=== PATIENT | female | born 1970 | race Caucasian/White ===

== ENCOUNTER 2020-07-14 12:14 | Outpatient (REF) | payer MEDICARE, MEDICAID, SELFPAY | END 2020-07-14 12:15 | disposition home or self-care (01) | LOC: HO.HMGCLDS 12:14 | PROVIDERS: PCP Internal Medicine; Visit Provider Internal Medicine | DX: Z13.89 Encounter for screening for other disorder (principal) ==

== ENCOUNTER 2020-11-01 15:04 | Outpatient (REF) | payer MEDICARE, MEDICAID, SELFPAY ==
[2020-11-01 16:31] LABS: MANUAL DIFF FLAG NO
[2020-11-01 16:38] LABS: Basophils Absolute Auto 0.1 X10*3/uL (0.0-0.2); Eosinophils Absolute Auto 0.2 X10*3/uL (0.0-0.4); Eosinophils Percent Auto 2.3 % (0-4); Hematocrit 45.4 % (37-47); Hemoglobin 14.7 g/dl (12.0-16.0); Imm Gran Abs Auto 0.05 X10*3/uL (0.00-0.03); Imm Gran Pct Auto 0.5 % (0.0-0.4); Lymphocytes Absolute Auto 2.2 X10*3/uL (1.2-4.9); Lymphocytes Percent Auto 22.7 % (20-40); Mean Corpuscular HGB Conc 32.4 g/dl (31.0-35.0); Mean Corpuscular Hemoglobin 29.7 pg (27.0-33.0); Mean Corpuscular Volume 91.7 fL (80-98); Monocytes Absolute Auto 0.6 X10*3/uL (0.1-1.2); Monocytes Percent Auto 6.5 % (2-11); Neutrophils Absolute Auto 6.5 X10*3/uL (2.0-8.3); Platelet Count 404 X10*3/uL (160-400); Red Blood Count 4.95 X10*6/uL (4.20-5.50); Red Cell Distribution Width 12.9 % (11.0-16.0); White Blood Count 9.7 X10*3/uL (4.8-10.8)
[2020-11-01 17:01] LABS: Alanine Aminotransferase 17 U/L (0-31); Albumin Level 4.5 g/dL (3.5-5.0); Alkaline Phosphatase 83 U/L (39-117); Anion Gap 14 (12-20); Aspartate Amino Transferase 11 U/L (5-31); Bilirubin Direct 0.2 mg/dL (0.0-0.5); Bilirubin Total 0.5 mg/dL (0.0-1.0); Blood Urea Nitrogen 13 mg/dL (9-16); Calcium 9.4 mg/dL (8.4-10.2); Carbon Dioxide 28 mmol/L (22-29); Chloride 101 mmol/L (96-108); Estimated Glomerular Filt Rate > 60; Glucose Random 95 mg/dL (60-115); Potassium 4.7 mmol/L (3.3-5.1); Sodium 138 mmol/L (135-145); Total Protein 7.5 g/dL (6.5-8.0)
[2020-11-01 17:22] LABS: TSH reflex Free T4 0.91 uIU/mL (0.32-4.0)
[2020-11-02 05:51] LABS: LDL Cholesterol Direct 122 mg/dL (<100)
[2020-11-05 14:31] LABS: Vitamin D 25-OH, D2 <4 ng/mL; Vitamin D 25-OH, D3 30 ng/mL; Vitamin D 25-OH, Total 30 ng/mL (30-100)
== END 2020-11-01 15:05 | disposition home or self-care (01) ==
LOC: HO.HMGCLDS 15:04
PROVIDERS: PCP Internal Medicine; Visit Provider Internal Medicine
DX: I10 Essential (primary) hypertension (principal); E03.9 Hypothyroidism, unspecified; J45.30 Mild persistent asthma, uncomplicated; Z91.09 Other allergy status, other than to drugs and biological substances
CPT/HCPCS: 36415; 80048; 80076; 82306; 83721; 84443; 85025

== ENCOUNTER 2021-08-25 12:51 | Outpatient (REF) | payer MEDICARE, MEDICAID, SELFPAY ==
[2021-08-25 13:48] LABS: MANUAL DIFF FLAG NO
[2021-08-25 13:51] LABS: Basophils Absolute Auto 0.1 X10*3/uL (0.0-0.2); Basophils Percent Auto 0.9 % (0-2); Eosinophils Absolute Auto 0.2 X10*3/uL (0.0-0.4); Eosinophils Percent Auto 1.7 % (0-4); Hematocrit 47.4 % (37.0-47.0); Hemoglobin 15.7 g/dl (12.0-16.0); Imm Gran Abs Auto 0.04 X10*3/uL (0.00-0.03); Imm Gran Pct Auto 0.4 % (0.0-0.4); Lymphocytes Absolute Auto 2.6 X10*3/uL (1.2-4.9); Mean Corpuscular HGB Conc 33.1 g/dl (31.0-35.0); Mean Corpuscular Hemoglobin 30.1 pg (27.0-33.0); Mean Platelet Volume 8.5 fL (9.4-12.3); Monocytes Absolute Auto 0.6 X10*3/uL (0.1-1.2); Monocytes Percent Auto 5.9 % (2-11); Neutrophils Absolute Auto 7.3 x10*3/uL (2.0-8.3); Neutrophils Percent Auto 67.1 % (45-73); Platelet Count 411 X10*3/uL (160-400); Red Blood Count 5.21 X10*6/uL (4.20-5.50); Red Cell Distribution Width 12.9 % (11.0-16.0); White Blood Count 10.8 X10*3/uL (4.8-10.8)
[2021-08-25 14:04] LABS: Estimated Average Glucose 117 mg/dL; Hemoglobin A1C 152.1826 umol/L; Hemoglobin A1c % 5.7 %
[2021-08-25 14:15] LABS: Alanine Aminotransferase 10 U/L (0-31); Albumin Level 4.7 g/dL (3.5-5.0); Alkaline Phosphatase 86 U/L (39-117); Anion Gap 12 (12-20); Aspartate Amino Transferase 14 U/L (5-31); Bilirubin Total 0.4 mg/dL (0.0-1.0); Blood Urea Nitrogen 14 mg/dL (9-16); Carbon Dioxide 29 mmol/L (22-29); Chloride 101 mmol/L (96-108); Estimated Glomerular Filt Rate > 60; Glucose Random 117 mg/dL (60-115); Potassium 4.6 mmol/L (3.3-5.1); Sodium 137 mmol/L (135-145)
[2021-08-25 14:35] LABS: TSH reflex Free T4 0.76 uIU/mL (0.32-4.0)
[2021-08-26 05:11] LABS: LDL Cholesterol Direct 140 mg/dL (<100)
[2021-08-29 07:07] LABS: Vitamin D 25-OH, D2 <4 ng/mL; Vitamin D 25-OH, D3 28 ng/mL; Vitamin D 25-OH, Total 28 ng/mL (30-100)
== END 2021-08-25 12:52 | disposition home or self-care (01) ==
LOC: HO.HMGCLDS 12:51
PROVIDERS: PCP Internal Medicine; Visit Provider Internal Medicine
DX: I10 Essential (primary) hypertension (principal); E03.9 Hypothyroidism, unspecified; E66.9 Obesity, unspecified; K62.5 Hemorrhage of anus and rectum; K64.4 Residual hemorrhoidal skin tags; K59.01 Slow transit constipation; Z91.09 Other allergy status, other than to drugs and biological substances
CPT/HCPCS: 36415; 80053; 82306; 83036; 83721; 84443; 85025

== ENCOUNTER 2022-07-03 11:55 | Outpatient (REF) | payer MEDICARE, MEDICAID, SELFPAY ==
[2022-07-03 16:09] LABS: Alanine Aminotransferase 12 U/L (0-31); Albumin Level 4.6 g/dL (3.5-5.0); Alkaline Phosphatase 85 U/L (39-117); Anion Gap 14 (12-20); Aspartate Amino Transferase 14 U/L (5-31); Bilirubin Total 0.6 mg/dL (0.0-1.0); Blood Urea Nitrogen 10 mg/dL (9-16); Calcium 9.7 mg/dL (8.4-10.2); Carbon Dioxide 24 mmol/L (22-29); Chloride 103 mmol/L (96-108); Estimated Glomerular Filt Rate > 60; Glucose Fasting 105 mg/dL (60-99); Glucose Random 105 mg/dL (60-115); Potassium 4.5 mmol/L (3.3-5.1); Sodium 136 mmol/L (135-145); Total Protein 7.6 g/dL (6.5-8.0)
[2022-07-04 08:57] LABS: LDL Cholesterol Direct 146 mg/dL (<100)
[2022-07-07 14:47] LABS: Vitamin D 25-OH, D2 <4 ng/mL; Vitamin D 25-OH, D3 16 ng/mL; Vitamin D 25-OH, Total 16 ng/mL (30-100)
== END 2022-07-03 11:56 | disposition home or self-care (01) ==
LOC: HO.HMGCLDS 11:55
PROVIDERS: PCP Internal Medicine; Visit Provider Internal Medicine
DX: J44.9 Chronic obstructive pulmonary disease, unspecified (principal); E55.9 Vitamin D deficiency, unspecified; E03.9 Hypothyroidism, unspecified; I10 Essential (primary) hypertension; E66.9 Obesity, unspecified; K59.01 Slow transit constipation; K64.4 Residual hemorrhoidal skin tags; Z91.09 Other allergy status, other than to drugs and biological substances
CPT/HCPCS: 36415; 80053; 82306; 83721; 84443

== ENCOUNTER 2022-12-26 15:29 | Outpatient (REF) | payer MEDICARE, MEDICAID, SELFPAY ==
--- NOTE | ~2022-12-26 | MM_ITS ---
EXAMINATION: MM SCREENING DIGITAL BREAST TOMOSYNTHESIS, BILATERAL CLINICAL INFORMATION: Screening. Asymptomatic. The lifetime risk of breast cancer based on the Tyrer-Cuzick Model is 16%. COMPARISON: Mammography: This study is compared with prior exams dating back to 2018. TECHNIQUE: Digital breast tomosynthesis is performed in both the craniocaudal and mediolateral oblique views along with computer-aided detection (CAD). Synthesized 2D images are generated from the tomosynthesis. FINDINGS: There are scattered areas of fibroglandular density (ACR BI-RADS breast composition Category b). There are no significant masses, abnormal calcifications, or other abnormalities. MM/MM tomosynthesis screening BI IMPRESSION: No mammographic evidence of malignancy. ASSESSMENT: BI-RADS BI-RADS 1 - Negative RECOMMENDATION: Routine annual mammography screening. 1 year F/U This examination should not preclude the clinical evaluation of a suspicious palpable abnormality. This patient's information was entered into a reminder system with a target due date for their next mammogram.
== END 2022-12-26 15:30 | disposition home or self-care (01) ==
LOC: HO.MAMMO 15:29
PROVIDERS: PCP Internal Medicine; Visit Provider Internal Medicine
DX: Z12.31 Encounter for screening mammogram for malignant neoplasm of breast (principal)
CPT/HCPCS: 77063; 77067

== ENCOUNTER → 2022-12-26 15:30 | Outpatient (BNV) | payer MEDICARE, MEDICAID, SELFPAY | PROVIDERS: PCP Internal Medicine; Visit Provider Radiology Diagnostic Radiology | DX: Z12.31 Encounter for screening mammogram for malignant neoplasm of breast (principal) | CPT/HCPCS: 77063; 77067 ==

== ENCOUNTER 2023-01-29 15:08 | Outpatient (AMB) | payer MEDICARE, MEDICAID, SELFPAY ==
[2023-01-29 15:12] VITALS: BP 142/86; PULSE 86; O2SAT 96; BMI 37.5
--- NOTE | 2023-01-29 15:12 | MHC.PC.OV ---
Vital Signs 01/29/23 15:12 Height 5 ft 1 in Weight 198 lb 6 oz BMI 37.5 BP 142/86 H Blood Pressure Location Rt brachial Position Sitting Pulse 86 Pulse Source Pulse Oximeter Pulse Oximetry (%) 96 Oxygen Delivery Method Room Air Intake Visit Reasons: BP Follow up Allergies No Known Allergies [No Known Allergies*] Allergy (Verified 01/29/23 15:13) Medication List - Last Reconciled 01/29/23 by Sukhwinder Cade MD albuterol sulfate 90 mcg/actuation 2 puffs PO QID PRN amlodipine 2.5 mg PO DAILY clotrimazole 1% (Antifungal (clotrimazole)) 1 appl topical BID 30 days fluticasone propionate 50 mcg/actuation (Flonase Allergy Relief) 1 spray intranasal DAILY 30 days levothyroxine 150 mcg PO DAILY 90 days miscellaneous medical supply (Blood Pressure Cuff) blood pressure device polyethylene glycol 3350 (Miralax) 17 grams PO DAILY 90 days Tobacco use date assessed: 01/29/23 Dental Screening Dental Screen Date: 01/29/23 Did you have a dental visit in the last 12 months?: No Did you have a dental problem in the last 6 months where you did not have access to dental care?: No Was dental information given to patient?: No HPI BP Follow up HPI Details Patient is 52-year-old female came in for follow-up appointment Due for labs Patient is prediabetic, I will be booking her appointment with the dietitian She continued to smoke we talked about again today if she needed any help I can provide that. For now she needs to cut down number of cigarettes she is smoking She is on levothyroxine 150 mcg for hypothyroidism. Flonase for allergic rhinitis. Hypertension: Taking amlodipine 2.5 mg blood pressure is elevated I am increasing the dose to 5 mg? ProAir as needed for asthma which is more like seasonal , and Zyrtec for allergies BMI is elevated patient need to lose weight Patient has appointment in June [facility] Medical History Asthma COPD (chronic obstructive pulmonary disease) Daytime somnolence Hypertension, essential Hypothyroidism Obesity (BMI 35.0-39.9 without comorbidity) Family History Other Mental health disorder Substance use disorder Social History Housing: Apartment Patient Tobacco Use Status: Current everyday Tobacco user Cigarette Packs Per Day: 1 e-Cigarette/Vaping Use: Never Used service: No Current occupational status: unemployed Cognitive needs: No Hearing needs: No Vision needs: Yes Questionnaire PHQ-9 Over the last 2 weeks, how often have you been bothered by any of the following problems? 1. Little interest or pleasure in doing things: several days 2. Feeling down, depressed, or hopeless: more than half the days 3. Trouble falling or staying asleep, or sleeping too much: more than half the days 4. Feeling tired or having little energy: more than half the days 5. Poor appetite or overeating: more than half the days 6. Feeling bad about yourself - or that you are a failure or have let yourself or your family down: several days 7. Trouble concentrating on things, such as reading the newspaper or watching television: not at all 8. Moving or speaking so slowly that other people could have noticed. Or the opposite - being so fidgety or restless that you have been moving around a lot more than usual: several days 9. Thoughts that you would be better off or of hurting yourself in some way: not at all Total score: 11 Depression Screening Interpretation: Negative 38292 - PHQ-9 Billing: Yes Source: Developed by Drs. Ricardo Mojica, Nisha Vora, Smooth David and colleagues, with an educational carmencita from [email or web address]. Thrive Questionnaire Date Thrive assessed: 01/29/23 I am a: Patient What is your living situation today?: I have a steady place to live Within the past 12 months, did the food you bought not last and you didn't have the money to get more?: Never true Within the past 12 months, did you worry whether your food would run out before you got money to buy more?: Never true Do you have trouble paying for medicines?: No Do you have trouble getting transportation to medical appointments?: Yes Do you have trouble paying your heating and electricity bill?: No Do you have trouble taking care of your child, family member or friend?: No Do you have trouble with day-to-day activities such as bathing, preparing meals, shopping, managing finances, etc.?: Yes Are you currently unemployed and looking for a job?: No Are you interested in more education?: No AUDIT C Alcohol Use Questionnaire (AUDIT-C) 1. How often do you have a drink containing alcohol?: Never 3. How often do you have six or more drinks on one occasion?: Never Total Score: 0 Score Reviewed/Action Taken: Yes ESSIE-7 AMB Questionnaire ESSIE-7 Date ESSIE - 7 assessed: 01/29/23 Feeling nervous, anxious, or on edge: 1 = Several days Not being able to stop or control worryin = Several days Worrying too much about different things: 1 = Several days Trouble relaxin = Several days Being so restless that it is hard to sit still: 1 = Several days Becoming easily annoyed or irritable: 1 = Several days Feeling afraid as if something awful might happen: 0 = Not at all Total ESSIE-7 score (0-4 normal; 5-9 mild; 10-14 moderate; 15-21 severe): 6 Source: Developed by Drs. Ricardo Mojica, Nisha Vora, Smooth David and colleagues, with an educational carmencita from [email or web address]. ESSIE-7 Assessment Billing ESSIE-7 Assessment Tool: ESSIE-7 Assessment 07905 Review of Systems Const Denies chills and Denies fever(s) ENT Denies epistaxis and Denies nasal discharge Card Denies chest pain Resp Denies chest congestion, Denies cough and Denies hemoptysis GI Denies diarrhea and Denies nausea Skin/Breast Denies rash Neuro Reports no additional complaints Psych Reports no additional complaints Endo Reports no additional complaints Physical exam (Primary Care) Vital Signs: Last Vital Signs Pulse 86 01/29/23 15:12 BP 142/86 H 01/29/23 15:12 Pulse Ox 96 01/29/23 15:12 Oxygen Delivery Method Room Air 01/29/23 15:12 BMI result Body Mass Index 37.5 Tobacco/Smoking Status: Tobacco use Status Tobacco use date assessed 01/29/23 01/29/23 15:16 Patient Tobacco Use Status Current everyday Tobacco 01/29/23 15:16 e-Cigarette/Vaping Use Never Used 01/29/23 15:16 PHQ-9: PHQ-9 Score PHQ-9: Total score 11 01/29/23 15:48 Depression Screening Interpretation: Negative Thrive Assessment: Date of Thrive Assessment Date Thrive assessed 01/29/23 01/29/23 15:48 Const General: cooperative, comfortable and no acute distress Orientation/consciousness: patient oriented x3 HENMT Head: Yes normocephalic Eyes General: appearance normal, both eyes and all related structures Neck Neck: Yes supple Resp Effort & Inspection: normal respiratory effort, no cough and no stridor Cardio Rhythm: regular rhythm Heart sounds: S1 normal heart sound present and S2 normal heart sound present Skin General skin exam: turgor normal Neuro General: patient oriented x3, tone normal and moves all extremities Extrem Right lower extremity: no edema Left lower extremity: no edema Assessment and Plan Assessment & Plan (1) Hypertension, essential: Code(s): I10 - Essential (primary) hypertension (2) Hypothyroidism: Code(s): E03.9 - Hypothyroidism, unspecified Qualifiers: Hypothyroidism type: unspecified Qualified Code(s): E03.9 - Hypothyroidism, unspecified (3) COPD (chronic obstructive pulmonary disease): Code(s): J44.9 - Chronic obstructive pulmonary disease, unspecified Qualifiers: COPD type: unspecified COPD Qualified Code(s): J44.9 - Chronic obstructive pulmonary disease, unspecified (4) Obesity (BMI 35.0-39.9 without comorbidity): Code(s): E66.9 - Obesity, unspecified (5) Pre-diabetes: Code(s): R73.03 - Prediabetes (6) Smoker: Code(s): F17.200 - Nicotine dependence, unspecified, uncomplicated Plan Patient is 52-year-old female came in for follow-up appointment Due for labs Patient is prediabetic, I will be booking her appointment with the dietitian She continued to smoke we talked about again today if she needed any help I can provide that. For now she needs to cut down number of cigarettes she is smoking She is on levothyroxine 150 mcg for hypothyroidism. Flonase for allergic rhinitis. Hypertension: Taking amlodipine 2.5 mg blood pressure is elevated I am increasing the dose to 5 mg? ProAir as needed for asthma which is more like seasonal , and Zyrtec for allergies BMI is elevated patient need to lose weight Patient has appointment in [place] Orders: Orders Hemoglobin A1c Today E03.9 - Hypothyroidism, unspecified, E66.9 - Obesity, unspecified, I10 - Essential (primary) hypertension, J44.9 - Chronic obstructive pulmonary disease, unspecified TSH reflex Free T4 Today E03.9 - Hypothyroidism, unspecified, E66.9 - Obesity, unspecified, I10 - Essential (primary) hypertension, J44.9 - Chronic obstructive pulmonary disease, unspecified Complete Blood Count Auto Diff Today E03.9 - Hypothyroidism, unspecified, E66.9 - Obesity, unspecified, I10 - Essential (primary) hypertension, J44.9 - Chronic obstructive pulmonary disease, unspecified Comprehensive Savage. Panel Fast Today E03.9 - Hypothyroidism, unspecified, E66.9 - Obesity, unspecified, F17.200 - Nicotine dependence, unspecified, uncomplicated, I10 - Essential (primary) hypertension, J44.9 - Chronic obstructive pulmonary disease, unspecified, R73.03 - Prediabetes Lipid Panel Today E03.9 - Hypothyroidism, unspecified, E66.9 - Obesity, unspecified, F17.200 - Nicotine dependence, unspecified, uncomplicated, I10 - Essential (primary) hypertension, J44.9 - Chronic obstructive pulmonary disease, unspecified, R73.03 - Prediabetes Medications: Changed From amlodipine 2.5 mg PO DAILY 30 tabs 0RF To amlodipine 5 mg PO DAILY 90 tabs 1RF Coding Level of Care Code Est Pt Level 4 (93830) Diagnoses Hypertension, essential I10 Hypothyroidism E03.9 Hypothyroidism type: unspecified COPD (chronic obstructive pulmonary disease) J44.9 COPD type: unspecified COPD Obesity (BMI 35.0-39.9 without comorbidity) E66.9 Pre-diabetes R73.03 Smoker F17.200 Additional Codes ESSIE-7 Assessment Billing - ESSIE-7 Assessment Tool: ESSIE-7 Assessment [id number] ([id number])
== END 2023-01-29 15:33 | disposition home or self-care (01) ==
PROVIDERS: PCP Internal Medicine; Visit Provider Internal Medicine
DX: I10 Essential (primary) hypertension (principal); E03.9 Hypothyroidism, unspecified; J44.9 Chronic obstructive pulmonary disease, unspecified; F17.210 Nicotine dependence, cigarettes, uncomplicated; E66.9 Obesity, unspecified; R73.03 Prediabetes
CPT/HCPCS: 99214

== ENCOUNTER 2023-07-09 10:53 | Outpatient (AMB) | payer MEDICARE, MEDICAID, SELFPAY ==
--- NOTE | 2023-07-09 10:53 | A.OFFPC_ITS ---
Vital Signs 07/09/23 10:54 Height 5 ft 1 in Intake Visit Reasons: F/u pneumonia~[phone] Allergies No Known Allergies [No Known Allergies*] Allergy (Verified 07/09/23 10:54) Medication List - Last Reconciled 07/09/23 by Sukhwinder Cade MD albuterol sulfate 90 mcg/actuation 2 puffs PO QID PRN amlodipine 5 mg PO DAILY clotrimazole 1% (Antifungal (clotrimazole)) 1 appl topical BID 30 days fluticasone propionate 50 mcg/actuation (Flonase Allergy Relief) 1 spray intranasal DAILY 30 days levothyroxine 150 mcg PO DAILY 90 days miscellaneous medical supply (Blood Pressure Cuff) blood pressure device polyethylene glycol 3350 (Miralax) 17 grams PO DAILY 90 days Tobacco use date assessed: 07/09/23 Dental Screening Dental Screen Date: 07/09/23 Did you have a dental visit in the last 12 months?: Yes Did you have a dental problem in the last 6 months where you did not have access to dental care?: No Was dental information given to patient?: Patient has dentist HPI F/u pneumonia~[phone] HPI Details Patient is a 53-year-old female this is a telemedicine follow-up appointment post hospital discharge dated 06/22/2023 [facility], when patient presented with a chief complaint of cough with left-sided chest wall pain of 2 weeks' duration. Patient's oxygen saturation was 93% on room air at arrival On examination she was found to have isolated inspiratory crackles left base without any respiratory distress X-ray done was consistent with pneumonia, she also had leukocytosis Patient was treated with doxycycline and prednisone And was discharged home Patient has finished her antibiotic course she is feeling better, chest pain has resolved she is able to take deep breaths now However continued to have congested cough but phlegm is clear Patient also complaining of lack of energy and get tired easily She was supposed to have labs for me in January but she did not I have placed another order for labs to be done end of this month fasting so we can check her sugar Patient have impaired fasting sugar We will also repeat chest x-ray end of this month Her blood pressure has been running high she tells be, in hospital it was 138 systolic I am increasing amlodipine to 10 mg currently patient is on 5 mg Hypothyroidism: Continue levothyroxine 150 mcg PFSH Medical History Daytime somnolence Obesity (BMI 35.0-39.9 without comorbidity) Asthma COPD (chronic obstructive pulmonary disease) Hypothyroidism Hypertension, essential Family History Other Mental health disorder Substance use disorder Social History Housing: Apartment Patient Tobacco Use Status: Current everyday Tobacco user Cigarette Packs Per Day: 1 e-Cigarette/Vaping Use: Never Used service: No Current occupational status: unemployed Cognitive needs: No Hearing needs: No Vision needs: Yes Questionnaire Thrive Questionnaire Date Thrive assessed: 01/29/23 AUDIT C Alcohol Use Questionnaire (AUDIT-C) 1. How often do you have a drink containing alcohol?: Never 3. How often do you have six or more drinks on one occasion?: Never Total Score: 0 Score Reviewed/Action Taken: Yes ESSIE-7 AMB Questionnaire ESSIE-7 Date ESSIE - 7 assessed: 01/29/23 Source: Developed by Drs. Ricardo Mojica, Nisha Vora, Smooth David and colleagues, with an educational carmencita from [employer]. Review of Systems Const Denies chills and Denies fever(s) ENT Denies epistaxis and Denies nasal discharge Card Denies chest pain Resp Denies hemoptysis GI Denies diarrhea and Denies nausea Skin/Breast Denies rash Neuro Reports no additional complaints Psych Reports no additional complaints Endo Reports no additional complaints Physical exam (Primary Care) Tobacco/Smoking Status: Tobacco use Status Tobacco use date assessed 07/09/23 07/09/23 10:55 Patient Tobacco Use Status Current everyday Tobacco 07/09/23 10:55 e-Cigarette/Vaping Use Never Used 07/09/23 10:55 Thrive Assessment: Date of Thrive Assessment Date Thrive assessed 01/29/23 07/09/23 10:55 Telehealth Telehealth Location of provider rendering services: practice address Location of patient: address on file Patient Identification confirmed using: Name, : Yes Telehealth method: voice only Patient verbally consented to treatment: Yes Patient verbally consented to billing insurance company: Yes Patient informed of any privacy concerns related to visit: Yes Assessment and Plan Assessment & Plan (1) Acute pneumonia: Code(s): J18.9 - Pneumonia, unspecified organism (2) Pre-diabetes: Code(s): R73.03 - Prediabetes (3) Environmental allergies: Code(s): Z91.09 - Other allergy status, other than to drugs and biological substances (4) COPD (chronic obstructive pulmonary disease): Code(s): J44.9 - Chronic obstructive pulmonary disease, unspecified Qualifiers: COPD type: unspecified COPD Qualified Code(s): J44.9 - Chronic obstructive pulmonary disease, unspecified (5) Hypothyroidism: Code(s): E03.9 - Hypothyroidism, unspecified Qualifiers: Hypothyroidism type: unspecified Qualified Code(s): E03.9 - Hypothyroidism, unspecified (6) Hypertension, essential: Code(s): I10 - Essential (primary) hypertension Plan Patient is a 53-year-old female this is a telemedicine follow-up appointment post hospital discharge dated 06/22/2023 [facility], when patient presented with a chief complaint of cough with left-sided chest wall pain of 2 weeks' duration. Patient has COPD Patient's oxygen saturation was 93% on room air at arrival On examination she was found to have isolated inspiratory crackles left base without any respiratory distress X-ray done was consistent with pneumonia, she also had leukocytosis Patient was treated with doxycycline and prednisone And was discharged home Patient has finished her antibiotic course she is feeling better, chest pain has resolved she is able to take deep breaths now However continued to have congested cough but phlegm is clear Patient also complaining of lack of energy and get tired easily She was supposed to have labs for me in January but she did not I have placed another order for labs to be done end of this month fasting so we can check her sugar Patient have impaired fasting sugar We will also repeat chest x-ray end of this month Her blood pressure has been running high she tells be, in hospital it was 138 systolic I am increasing amlodipine to 10 mg currently patient is on 5 mg Hypothyroidism: Continue levothyroxine 150 mcg Orders: Orders XR chest 2V Today J18.9 - Pneumonia, unspecified organism Medications: Changed From amlodipine 5 mg PO DAILY 90 tabs 1RF To amlodipine 10 mg PO DAILY 90 tabs 1RF Coding Level of Care Code Tele Est Pt Level 4 (41020) Diagnoses Acute pneumonia J18.9 Pre-diabetes R73.03 Environmental allergies Z91.09 Chronic obstructive pulmonary disease, unspecified COPD type J44.9 COPD type: unspecified COPD Hypothyroidism, unspecified type E03.9 Hypothyroidism type: unspecified Hypertension, essential I10 Time Spent (min) 30 Comment 5 prep, 20 with patient, 5 charting coordination of care
== END 2023-07-09 13:59 | disposition home or self-care (01) ==
LOC: HO.HMGC 10:53
PROVIDERS: PCP Internal Medicine; Visit Provider Internal Medicine
DX: J44.9 Chronic obstructive pulmonary disease, unspecified (principal); J18.9 Pneumonia, unspecified organism; R73.03 Prediabetes; Z91.09 Other allergy status, other than to drugs and biological substances; E03.9 Hypothyroidism, unspecified; I10 Essential (primary) hypertension
CPT/HCPCS: 99443

== ENCOUNTER 2023-07-25 10:06 | Outpatient (REF) | payer MEDICARE, MEDICAID, SELFPAY ==
--- NOTE | ~2023-07-25 | XR_ITS ---
EXAMINATION: XR CHEST CLINICAL INFORMATION: Pneumonia COMPARISON: Chest x-ray on 01/29/2019 TECHNIQUE: 2 views of the chest were obtained. FINDINGS: vascularity. LUNGS: Asymmetric patchy alveolar infiltrates is seen in the right lower lung, probably projected over the right lower lobe posterior basal segment. No pneumothorax is seen. BONES: Bony skeleton is intact. XR/XR chest 2V IMPRESSION: Interval development of Right lower lobe infiltrate suggestive of pneumonia. Follow-up chest x-ray in 4-6 weeks is recommended to ensure complete clearance and exclude underlying pathology.
[2023-07-25 13:12] LABS: MANUAL DIFF FLAG NO
[2023-07-25 13:22] LABS: Basophils Absolute Auto 0.1 X10*3/uL (0.0-0.2); Basophils Percent Auto 0.9 % (0-2); Eosinophils Absolute Auto 0.4 X10*3/uL (0.0-0.4); Eosinophils Percent Auto 3.9 % (0-4); Hematocrit 45.6 % (37.0-47.0); Hemoglobin 15.3 g/dl (12.0-16.0); Imm Gran Abs Auto 0.04 X10*3/uL (0.00-0.03); Imm Gran Pct Auto 0.4 % (0.0-0.4); Lymphocytes Percent Auto 31.1 % (20-40); Mean Corpuscular HGB Conc 33.6 g/dl (31.0-35.0); Mean Corpuscular Hemoglobin 30.6 pg (27.0-33.0); Mean Corpuscular Volume 91.2 fL (80.0-98.0); Mean Platelet Volume 8.8 fL (9.4-12.3); Monocytes Absolute Auto 0.7 X10*3/uL (0.1-1.2); Monocytes Percent Auto 6.8 % (2-11); Neutrophils Absolute Auto 5.4 x10*3/uL (2.0-8.3); Neutrophils Percent Auto 56.9 % (45-73); Platelet Count 403 X10*3/uL (160-400); Red Cell Distribution Width 13.1 % (11.0-16.0); White Blood Count 9.6 X10*3/uL (4.8-10.8)
[2023-07-25 13:40] LABS: Estimated Average Glucose 123 mg/dL; Hemoglobin A1c % 5.9 % (<6.0)
[2023-07-25 13:53] LABS: Alanine Aminotransferase 12 U/L (0-31); Albumin Level 4.1 g/dL (3.5-5.0); Alkaline Phosphatase 83 U/L (39-117); Anion Gap 10 (12-20); Aspartate Amino Transferase 13 U/L (5-31); Bilirubin Total 0.3 mg/dL (0.0-1.0); Blood Urea Nitrogen 7 mg/dL (9-16); Calcium 9.4 mg/dL (8.4-10.2); Carbon Dioxide 28 mmol/L (22-29); Chloride 105 mmol/L (96-108); Cholesterol 192 mg/dL (<200); Estimated Glomerular Filt Rate > 60; Glucose Fasting 117 mg/dL (60-99); HDL Cholesterol 55 mg/dL (>40); LDL Cholesterol Calculated 124 mg/dL (<100); Sodium 139 mmol/L (135-145); Total Protein 7.4 g/dL (6.5-8.0); Triglycerides 67 mg/dL (<150)
[2023-07-25 13:57] LABS: TSH reflex Free T4 2.28 uIU/mL (0.32-4.0)
== END 2023-07-25 10:07 | disposition home or self-care (01) ==
LOC: HO.HMGCX 10:06
PROVIDERS: PCP Internal Medicine; Visit Provider Internal Medicine
DX: J18.9 Pneumonia, unspecified organism (principal); J44.9 Chronic obstructive pulmonary disease, unspecified; I10 Essential (primary) hypertension; E03.9 Hypothyroidism, unspecified; E66.9 Obesity, unspecified; R73.03 Prediabetes; F17.200 Nicotine dependence, unspecified, uncomplicated
CPT/HCPCS: 36415; 71046; 80053; 80061; 83036; 84443; 85025

== ENCOUNTER 2023-07-31 08:33 | Outpatient (AMB) | payer MEDICARE, MEDICAID, SELFPAY ==
--- NOTE | 2023-07-31 11:43 | MHC.PC.OV ---
Vital Signs 07/31/23 11:44 Height 5 ft 1 in Intake Visit Reasons: Discuss XRay~ Allergies No Known Allergies [No Known Allergies*] Allergy (Verified 07/09/23 10:54) Medication List - Last Reconciled 07/31/23 by Sukhwinder Cade MD albuterol sulfate 90 mcg/actuation 2 puffs PO QID PRN amlodipine 10 mg PO DAILY clotrimazole 1% (Antifungal (clotrimazole)) 1 appl topical BID 30 days levothyroxine 150 mcg PO DAILY 90 days miscellaneous medical supply (Blood Pressure Cuff) blood pressure device Tobacco use date assessed: 07/31/23 Dental Screening Dental Screen Date: 07/31/23 Did you have a dental visit in the last 12 months?: No Did you have a dental problem in the last 6 months where you did not have access to dental care?: No Was dental information given to patient?: Patient has dentist HPI Discuss XRay~ HPI Details Patient is a 53-year-old female smoker who had left-sided pneumonia early in June She was evaluated in emergency room and was treated with doxycycline and prednisone We repeated chest x-ray to make sure pneumonia has resolved and chest x-ray this time shows right-sided pneumonia Patient does complain of having irritated cough which is not getting better X-ray report is as following Interval development of Right lower lobe infiltrate suggestive of pneumonia. Discussed with the patient, I have sent azithromycin she is to take that Encouraged patient to stop smoking or at least cut down as much as she can Labs done recently reviewed her fasting sugar is 117 with hemoglobin A1c of 5.9 Her LDL has improved from before at 01:24 Her vitamin-D level is low, I have sent supplement Patient is to repeat chest x-ray again in 6-8 weeks with follow-up appointment [facility] Medical History Daytime somnolence Obesity (BMI 35.0-39.9 without comorbidity) Asthma COPD (chronic obstructive pulmonary disease) Hypothyroidism Hypertension, essential Family History Other Mental health disorder Substance use disorder Social History Housing: Apartment Patient Tobacco Use Status: Current everyday Tobacco user Cigarette Packs Per Day: 1 e-Cigarette/Vaping Use: Never Used service: No Current occupational status: unemployed Cognitive needs: No Hearing needs: No Vision needs: Yes Questionnaire Thrive Questionnaire Date Thrive assessed: 01/29/23 AUDIT C Alcohol Use Questionnaire (AUDIT-C) 1. How often do you have a drink containing alcohol?: Never 3. How often do you have six or more drinks on one occasion?: Never Total Score: 0 Score Reviewed/Action Taken: Yes ESSIE-7 AMB Questionnaire ESSIE-7 Date ESSIE - 7 assessed: 01/29/23 Source: Developed by Drs. Ricardo Mojica, Nisha Vora, Smooth David and colleagues, with an educational carmencita from [employer]. Review of Systems Const Denies chills and Denies fever(s) ENT Denies epistaxis and Denies nasal discharge Card Denies chest pain Resp Denies hemoptysis GI Denies diarrhea and Denies nausea Skin/Breast Denies rash Neuro Reports no additional complaints Psych Reports no additional complaints Endo Reports no additional complaints Physical exam (Primary Care) Tobacco/Smoking Status: Tobacco use Status Tobacco use date assessed 07/31/23 07/31/23 11:44 Patient Tobacco Use Status Current everyday Tobacco 07/31/23 11:44 e-Cigarette/Vaping Use Never Used 07/31/23 11:44 Thrive Assessment: Date of Thrive Assessment Date Thrive assessed 01/29/23 07/31/23 11:44 Telehealth Telehealth Location of provider rendering services: practice address Location of patient: address on file Patient Identification confirmed using: Name, : Yes Telehealth method: voice only Patient verbally consented to treatment: Yes Patient verbally consented to billing insurance company: Yes Patient informed of any privacy concerns related to visit: Yes Assessment and Plan Assessment & Plan (1) Acute pneumonia: Code(s): J18.9 - Pneumonia, unspecified organism (2) Smoker: Code(s): F17.200 - Nicotine dependence, unspecified, uncomplicated (3) Pre-diabetes: Code(s): R73.03 - Prediabetes (4) Vitamin D deficiency: Code(s): E55.9 - Vitamin D deficiency, unspecified Plan Patient is a 53-year-old female smoker who had left-sided pneumonia early in June She was evaluated in emergency room and was treated with doxycycline and prednisone We repeated chest x-ray to make sure pneumonia has resolved and chest x-ray this time shows right-sided pneumonia Patient does complain of having irritated cough which is not getting better X-ray report is as following Interval development of Right lower lobe infiltrate suggestive of pneumonia. Discussed with the patient, I have sent azithromycin she is to take that Encouraged patient to stop smoking or at least cut down as much as she can Labs done recently reviewed her fasting sugar is 117 with hemoglobin A1c of 5.9 Her LDL has improved from before at 01:24 Her vitamin-D level is low, I have sent supplement Patient is to repeat chest x-ray again in 6-8 weeks with follow-up appointment Orders: Orders XR chest 2V 6 Weeks J18.9 - Pneumonia, unspecified organism Medications: New cholecalciferol (vitamin D3) 25 mcg PO DAILY 90 days 90 caps 0RF azithromycin Take 2 tablets today then 1 daily 250 mg PO ONCE 5 days 6 tabs 0RF J06.9 - Acute upper respiratory infection, unspecified Coding Level of Care Code Tele Est Pt Level 3 (50715) Diagnoses Acute pneumonia J18.9 Smoker F17.200 Pre-diabetes R73.03 Vitamin D deficiency E55.9 Time Spent (min) 21
== END 2023-07-31 13:24 | disposition home or self-care (01) ==
LOC: HO.HMGC 08:33
PROVIDERS: PCP Internal Medicine; Visit Provider Internal Medicine
DX: R73.03 Prediabetes (principal); J18.9 Pneumonia, unspecified organism; F17.200 Nicotine dependence, unspecified, uncomplicated; E55.9 Vitamin D deficiency, unspecified
CPT/HCPCS: 99443

== ENCOUNTER 2023-08-22 08:26 | Outpatient (AMB) | payer MEDICARE, MEDICAID, SELFPAY ==
--- NOTE | 2023-08-22 08:48 | MHC.PC.OV ---
Intake Visit Reasons: Ongoing cough [phone] Allergies No Known Allergies [No Known Allergies*] Allergy (Verified 08/22/23 08:49) Medication List - Last Reconciled 08/22/23 by Sukhwinder Cade MD albuterol sulfate 90 mcg/actuation 2 puffs PO QID PRN amlodipine 10 mg PO DAILY cholecalciferol (vitamin D3) 25 mcg PO DAILY 90 days levothyroxine 150 mcg PO DAILY 90 days miscellaneous medical supply (Blood Pressure Cuff) blood pressure device Tobacco use date assessed: 08/22/23 Dental Screening Dental Screen Date: 08/22/23 Did you have a dental visit in the last 12 months?: Yes Did you have a dental problem in the last 6 months where you did not have access to dental care?: No Was dental information given to patient?: Patient has dentist HPI Ongoing cough [phone] HPI Details Patient is 53-year-old female recovering from bronchitis Long history of smoking, still wheezing off and on, phlegm has been cleared now cough has improved I am adding maintenance inhaler Advair disc patient is to start using that 2 times a day Advised patient to have pharmacy demonstrate how to use it and rinse her mouth after using There is no fever chills there is no chest pain no nausea no vomiting Patient is to get back to me in 3 weeks to update me on how she is feeling. [facility] Medical History Daytime somnolence Obesity (BMI 35.0-39.9 without comorbidity) Asthma COPD (chronic obstructive pulmonary disease) Hypothyroidism Hypertension, essential Family History Other Mental health disorder Substance use disorder Social History Housing: Apartment Patient Tobacco Use Status: Current everyday Tobacco user Cigarette Packs Per Day: 1 e-Cigarette/Vaping Use: Never Used service: No Current occupational status: unemployed Cognitive needs: No Hearing needs: No Vision needs: Yes Questionnaire Thrive Questionnaire Date Thrive assessed: 01/29/23 AUDIT C Alcohol Use Questionnaire (AUDIT-C) 1. How often do you have a drink containing alcohol?: Never 3. How often do you have six or more drinks on one occasion?: Never Total Score: 0 Score Reviewed/Action Taken: Yes ESSIE-7 AMB Questionnaire ESSIE-7 Date ESSIE - 7 assessed: 01/29/23 Source: Developed by Drs. Ricardo Mojica, Nisha Vora, Smooth David and colleagues, with an educational carmencita from [employer]. Review of Systems Const Denies chills and Denies fever(s) ENT Denies epistaxis and Denies nasal discharge Card Denies chest pain Resp Denies hemoptysis GI Denies diarrhea and Denies nausea Skin/Breast Denies rash Neuro Reports no additional complaints Psych Reports no additional complaints Endo Reports no additional complaints Physical exam (Primary Care) Tobacco/Smoking Status: Tobacco use Status Tobacco use date assessed 08/22/23 08/22/23 08:50 Patient Tobacco Use Status Current everyday Tobacco 08/22/23 08:50 e-Cigarette/Vaping Use Never Used 08/22/23 08:50 Thrive Assessment: Date of Thrive Assessment Date Thrive assessed 01/29/23 08/22/23 08:50 Telehealth Telehealth Location of provider rendering services: practice address Location of patient: address on file Patient Identification confirmed using: Name, : Yes Telehealth method: voice only Patient verbally consented to treatment: Yes Patient verbally consented to billing insurance company: Yes Patient informed of any privacy concerns related to visit: Yes Assessment and Plan Assessment & Plan (1) Wheezing: Code(s): R06.2 - Wheezing (2) Smoker: Code(s): F17.200 - Nicotine dependence, unspecified, uncomplicated Plan Patient is 53-year-old female recovering from bronchitis Long history of smoking, still wheezing off and on, phlegm has been cleared now cough has improved I am adding maintenance inhaler Advair disc patient is to start using that 2 times a day Advised patient to have pharmacy demonstrate how to use it and rinse her mouth after using There is no fever chills there is no chest pain no nausea no vomiting Patient is to get back to me in 3 weeks to update me on how she is feeling. Medications: New fluticasone propion-salmeterol 250-50 mcg/dose (Advair Diskus) 1 inh inhalation BID 60 ea 0RF 30 days Coding Level of Care Code Tele Est Pt Level 3 (79095) Diagnoses Wheezing R06.2 Smoker F17.200
== END 2023-08-22 09:47 | disposition home or self-care (01) ==
LOC: HO.HMGC 08:26
PROVIDERS: PCP Internal Medicine; Visit Provider Internal Medicine
DX: R06.2 Wheezing (principal); F17.200 Nicotine dependence, unspecified, uncomplicated
CPT/HCPCS: 99442

== ENCOUNTER 2024-01-03 15:10 | Outpatient (AMB) | payer MEDICARE, MEDICAID, SELFPAY ==
[2024-01-03 15:16] VITALS: BP 138/84; PULSE 80; O2SAT 98; BMI 36.8
--- NOTE | 2024-01-03 15:16 | MHC.PC.OV ---
Vital Signs 01/03/24 15:16 Height 5 ft 1 in Weight 195 lb BMI 36.8 BP 138/84 Blood Pressure Location Lt brachial Position Sitting Pulse 80 Pulse Source Pulse Oximeter Pulse Oximetry (%) 98 Oxygen Delivery Method Room Air Intake Visit Reasons: f/u phneumonia Allergies No Known Allergies [No Known Allergies*] Allergy (Verified 01/03/24 15:16) Medication List - Last Reconciled 01/03/24 by Sukhwinder Cade MD albuterol sulfate 90 mcg/actuation 2 puffs PO QID PRN amlodipine 10 mg PO DAILY cholecalciferol (vitamin D3) 25 mcg PO DAILY 90 days clotrimazole 1% (Antifungal (clotrimazole)) 1 appl topical BID 30 days fluticasone propion-salmeterol 250-50 mcg/dose (Advair Diskus) 1 inh inhalation BID 30 days levothyroxine 150 mcg PO DAILY 90 days miscellaneous medical supply (Blood Pressure Cuff) blood pressure device Tobacco use date assessed: 01/03/24 Dental Screening Dental Screen Date: 01/03/24 Did you have a dental visit in the last 12 months?: No Did you have a dental problem in the last 6 months where you did not have access to dental care?: No Was dental information given to patient?: No HPI f/u phneumonia HPI Details Patient is a 53-year-old female came in today for regular follow-up appointment Asthma/COPD: Patient have a long history of smoking 1 pack per day since the age of 19 I started her on maintenance inhaler but she has not taking it regularly Patient says that her sister who is 56 years old have heart disease We did the EKG today that shows normal sinus rhythm 74 beats per minute No acute ST-T findings I ordered echocardiogram for the patient she has longstanding history of hypertension and smoking along with family history of coronary artery disease Complaining of heartburn which is more so after eating tomatoes, I am starting her on PPI Patient says that she will take it only as needed Also tells me that anxiety runs in her family and at time she also feel anxious Patient says that when she gets anxious she have pain left side of her chest which sometimes gets better with Tums Blood pressure is 138/84 patient is on amlodipine 10 mg she is to continue that Her other medications are levothyroxine 150 mcg for hypothyroidism Patient also have impaired fasting sugar BMI is elevated patient is obese and need to lose weight She is to return in three-month with physical exam appointment [facility] Medical History Daytime somnolence Obesity (BMI 35.0-39.9 without comorbidity) Asthma COPD (chronic obstructive pulmonary disease) Hypothyroidism Hypertension, essential Family History Other Mental health disorder Substance use disorder Social History Housing: Apartment Patient Tobacco Use Status: Current everyday Tobacco user Cigarette Packs Per Day: 1 e-Cigarette/Vaping Use: Never Used service: No Current occupational status: unemployed Cognitive needs: No Hearing needs: No Vision needs: Yes Questionnaire Thrive Questionnaire Date Thrive assessed: 01/29/23 ESSIE-7 AMB Questionnaire ESSIE-7 Date ESSIE - 7 assessed: 01/29/23 Source: Developed by Drs. Ricardo Mojica, Nisha Vora, Smooth David and colleagues, with an educational carmencita from [employer]. Review of Systems Const Denies chills and Denies fever(s) ENT Denies epistaxis and Denies nasal discharge Card Denies chest pain Resp Denies chest congestion, Denies cough and Denies hemoptysis GI Denies diarrhea and Denies nausea Skin/Breast Denies rash Neuro Reports no additional complaints Psych Reports no additional complaints Endo Reports no additional complaints Physical exam (Primary Care) Vital Signs: Last Vital Signs Pulse 80 01/03/24 15:16 BP 138/84 01/03/24 15:16 Pulse Ox 98 01/03/24 15:16 Oxygen Delivery Method Room Air 01/03/24 15:16 BMI result Body Mass Index 36.8 Tobacco/Smoking Status: Tobacco use Status Tobacco use date assessed 01/03/24 01/03/24 15:18 Patient Tobacco Use Status Current everyday Tobacco 01/03/24 15:18 e-Cigarette/Vaping Use Never Used 01/03/24 15:18 Thrive Assessment: Date of Thrive Assessment Date Thrive assessed 01/29/23 01/03/24 15:18 Const General: cooperative, comfortable and no acute distress Orientation/consciousness: patient oriented x3 HENMT Head: Yes normocephalic Eyes General: appearance normal, both eyes and all related structures Neck Neck: Yes supple Resp Effort & Inspection: normal respiratory effort, no cough and no stridor Cardio Rhythm: regular rhythm Heart sounds: S1 normal heart sound present and S2 normal heart sound present Skin General skin exam: turgor normal Neuro General: patient oriented x3, tone normal and moves all extremities Extrem Right lower extremity: no edema Left lower extremity: no edema Assessment and Plan Assessment & Plan (1) Hypertension, essential: Code(s): I10 - Essential (primary) hypertension (2) Hypothyroidism: Code(s): E03.9 - Hypothyroidism, unspecified Qualifiers: Hypothyroidism type: unspecified Qualified Code(s): E03.9 - Hypothyroidism, unspecified (3) COPD (chronic obstructive pulmonary disease): Code(s): J44.9 - Chronic obstructive pulmonary disease, unspecified Qualifiers: COPD type: unspecified COPD Qualified Code(s): J44.9 - Chronic obstructive pulmonary disease, unspecified (4) Obesity (BMI 35.0-39.9 without comorbidity): Code(s): E66.9 - Obesity, unspecified (5) Pre-diabetes: Code(s): R73.03 - Prediabetes (6) Smoker: Code(s): F17.200 - Nicotine dependence, unspecified, uncomplicated (7) Environmental allergies: Code(s): Z91.09 - Other allergy status, other than to drugs and biological substances (8) Family history of coronary artery disease: Code(s): Z82.49 - Family history of ischemic heart disease and other diseases of the circulatory system (9) Anxiety, generalized: Code(s): F41.1 - Generalized anxiety disorder Plan Patient is a 53-year-old female came in today for regular follow-up appointment Asthma/COPD: Patient have a long history of smoking 1 pack per day since the age of 19 I started her on maintenance inhaler but she has not taking it regularly Patient says that her sister who is 56 years old have heart disease We did the EKG today that shows normal sinus rhythm 74 beats per minute No acute ST-T findings I ordered echocardiogram for the patient she has longstanding history of hypertension and smoking along with family history of coronary artery disease Complaining of heartburn which is more so after eating tomatoes, I am starting her on PPI Patient says that she will take it only as needed Also tells me that anxiety runs in her family and at time she also feel anxious Patient says that when she gets anxious she have pain left side of her chest which sometimes gets better with Tums Blood pressure is 138/84 patient is on amlodipine 10 mg she is to continue that Her other medications are levothyroxine 150 mcg for hypothyroidism Patient also have impaired fasting sugar BMI is elevated patient is obese and need to lose weight She is to return in three-month with physical exam appointment 46 minute spent in care of this patient, including reviewing previous labs, notes EKG, ordering labs, charting, coordination of care and [id number] with the patient Orders: Orders Complete Blood Count Auto Diff Today E03.9 - Hypothyroidism, unspecified, E66.9 - Obesity, unspecified, F17.200 - Nicotine dependence, unspecified, uncomplicated, I10 - Essential (primary) hypertension, J44.9 - Chronic obstructive pulmonary disease, unspecified, R73.03 - Prediabetes, Z91.09 - Other allergy status, other than to drugs and biological substances Comprehensive [place]. Panel Fast Today E03.9 - Hypothyroidism, unspecified, E66.9 - Obesity, unspecified, F17.200 - Nicotine dependence, unspecified, uncomplicated, I10 - Essential (primary) hypertension, J44.9 - Chronic obstructive pulmonary disease, unspecified, R73.03 - Prediabetes, Z91.09 - Other allergy status, other than to drugs and biological substances Lipid Panel Today E03.9 - Hypothyroidism, unspecified, E66.9 - Obesity, unspecified, F17.200 - Nicotine dependence, unspecified, uncomplicated, I10 - Essential (primary) hypertension, J44.9 - Chronic obstructive pulmonary disease, unspecified, R73.03 - Prediabetes, Z91.09 - Other allergy status, other than to drugs and biological substances TSH reflex Free T4 Today E03.9 - Hypothyroidism, unspecified, E66.9 - Obesity, unspecified, F17.200 - Nicotine dependence, unspecified, uncomplicated, I10 - Essential (primary) hypertension, J44.9 - Chronic obstructive pulmonary disease, unspecified, R73.03 - Prediabetes, Z91.09 - Other allergy status, other than to drugs and biological substances Hemoglobin A1c Today E03.9 - Hypothyroidism, unspecified, E66.9 - Obesity, unspecified, F17.200 - Nicotine dependence, unspecified, uncomplicated, I10 - Essential (primary) hypertension, J44.9 - Chronic obstructive pulmonary disease, unspecified, R73.03 - Prediabetes, Z91.09 - Other allergy status, other than to drugs and biological substances AMB EKG-In Office Today E66.9 - Obesity, unspecified, I10 - Essential (primary) hypertension, Z82.49 - Family history of ischemic heart disease and other diseases of the circulatory system CA echo transthoracic complete Today F17.200 - Nicotine dependence, unspecified, uncomplicated, I10 - Essential (primary) hypertension, Z82.49 - Family history of ischemic heart disease and other diseases of the circulatory system Medications: New omeprazole 20 mg PO DAILY 90 caps 0RF Heartburn nicotine (Nicoderm CQ) 1 patch transdermal DAILY 28 ea 2RF Coding Level of Care Code Est Pt Level 5 (54673) Complex EM visit Add On G2211 Diagnoses Hypertension, essential I10 Hypothyroidism, unspecified type E03.9 Hypothyroidism type: unspecified Chronic obstructive pulmonary disease, unspecified COPD type J44.9 COPD type: unspecified COPD Obesity (BMI 35.0-39.9 without comorbidity) E66.9 Pre-diabetes R73.03 Smoker F17.200 Environmental allergies Z91.09 Family history of coronary artery disease Z82.49 Anxiety, generalized F41.1
== END 2024-01-03 15:48 | disposition home or self-care (01) ==
PROVIDERS: PCP Internal Medicine; Visit Provider Internal Medicine
DX: I10 Essential (primary) hypertension (principal); J44.9 Chronic obstructive pulmonary disease, unspecified; Z68.36 Body mass index [BMI] 36.0-36.9, adult; E66.9 Obesity, unspecified; Z82.49 Family history of ischemic heart disease and other diseases of the circulatory system; E03.9 Hypothyroidism, unspecified; R73.03 Prediabetes; F17.200 Nicotine dependence, unspecified, uncomplicated; Z91.09 Other allergy status, other than to drugs and biological substances; F41.1 Generalized anxiety disorder
CPT/HCPCS: 93000; 99215; G2211

== ENCOUNTER → 2024-01-17 15:00 | Outpatient (REF) | payer MEDICARE, MEDICAID, SELFPAY ==
--- NOTE | 2024-01-17 15:03 | CA_ITS ---
Transthoracic Echocardiogram Patient (Last, First, Middle): Tawana Mckeon A Gender: Female Date of : 1970 Age: 53 Procedure Date: 01/17/2024 Procedure Type: Transthoracic Echocardiogram Location: OP Height: 154. cm Weight: 88.45 kg BSA: 1.86 m2 Heart Rate: 72 bpm BP: 130 / 85 mmHg Cutting Torch Operator: MIKE Segundo MD: Sukhwinder Cade MD Symptoms: Z82.49 - Family history of ischemic heart disease and other diseases of ... Study Quality: Fair ECG Rhythm: Sinus Conclusions: - The left ventricular systolic function is normal. The calculated ejection fraction is 67% by biplane method. - No obvious valvular pathology seen on this study. Findings Left Ventricle Normal left ventricular cavity size. There is mildly increased left ventricular wall thickness. The left ventricular systolic function is normal. The calculated ejection fraction is 67% by biplane method. There is no evidence of regional wall motion abnormalities. Diastolic function is normal for age. Right Ventricle Mildly increased right ventricular cavity size. There is normal right ventricular systolic function. Atria The left atrium is mildly dilated. The right atrium is normal in size. Aortic Valve There is a normal trileaflet aortic valve. There is no aortic valve stenosis. There is trace (trivial) aortic valve regurgitation. Mitral Valve The mitral valve appears normal. There is no mitral valve regurgitation. There is no mitral valve stenosis. Pulmonic Valve The pulmonic valve is likely normal. Tricuspid Valve There is no tricuspid valve regurgitation. Tricuspid regurgitation envelope is inadequate for calculation of right ventricular systolic pressure. Great Vessels The asc aorta is normal in size. Venous The inferior vena cava is normal in size and collapses greater than 50% with inspiration. Pericardium/Pleural There is no evidence of pericardial effusion. Prior Study Comparison No significant change compared to prior study dated: 10/27/2018. Recommendations, Care & Conclusions No obvious valvular pathology seen on this study. Measurements 2D Linear Measurements IVSd: 1.25 0.6-0.9/0.6-1.0 cm LVIDd: 4.12 3.9-5.3/4.2-5.9 cm LVIDd Index: 2.22 2.4-3.2/2.2-3.1 cm/m2 LVIDs: 2.01 2.0-3.6 cm LVPWd: 1.17 0.7-1.1 cm LA Diam: 3.70 2.7-3.8/3.0-4.0 cm LAIDs Index: 1.99 1.5-2.3 cm/m2 LV Mass: 218.18 67-162/88-224 g LV Mass Index: 117.30 43-95/49-115 g/m2 LVOT Diam: 1.90 3.0+(-)1.3 cm 2D Systolic Function EF 4C: 65.20 >55% EF 2C: 69.70 >55% EF BiP: 66.80 >55% Mitral Valve MV Pk E: 0.89 MV PK A: 1.04 MV Decel Time: 241.00 E/A: 0.90 E'Lateral: 9.14 E'Medial: 7.07 E/E' Med: 12.60 E/E' Lat: 9.70 PHT: 71.00 MVA PHT: 3.10 Decel Kimball: 3.69 Aortic Valve AoV Pk Chavo: 1.85 AoV Mn Chavo: 1.30 AoV VTI: 0.41 AoV Pk Grad: 14.00 Aov Mn Grad: 8.00 ARTEMIO Cont.VTI: 1.84 LVOT LVOT Pk Chavo: 1.19 LVOT Mn Chavo: 0.88 LVOT VTI: 0.27 LVOT Pk Grad: 6.00 LVOT Mn Grad: 3.00 LVOT Diam: 1.90 LVOT Area: 2.84 Diastolic Function MV Pk E: 0.89 MV Pk A: 1.04 E/A: 0.90 E'Medial: 7.07 E/E' Med: 12.60 E' Laterial: 9.14 E/E' Lat: 9.70 Right Ventricle TAPSE (mm): 22.60 TVS' Chavo: 10.60 Tricuspid Valve RA Press: 3.00 Great Vessels Aorta Sinus of Valsalva: 2.80 2.0-3.5 cm Ao Asc: 3.60 2.1-3.4 cm Pulmonary Valve PV Pk Chavo: 0.98 Peak PV Grad: 4.00 Updated in Other Vendor System with Status of Final Sean Yoo MD electronically signed on 01/18/2024 11:39:04 AM with status of Final
== END ==
LOC: HO.CARD 15:00
PROVIDERS: PCP Internal Medicine; Visit Provider Internal Medicine
DX: I10 Essential (primary) hypertension (principal); F17.200 Nicotine dependence, unspecified, uncomplicated; Z82.49 Family history of ischemic heart disease and other diseases of the circulatory system
CPT/HCPCS: 93306

== ENCOUNTER → 2024-01-17 15:03 | Outpatient (BNV) | payer MEDICARE, MEDICAID, SELFPAY | PROVIDERS: PCP Internal Medicine; Visit Provider Internal Medicine | DX: I35.1 Nonrheumatic aortic (valve) insufficiency (principal); Z82.49 Family history of ischemic heart disease and other diseases of the circulatory system | CPT/HCPCS: 93306 ==

== ENCOUNTER 2024-05-27 14:55 | Outpatient (REF) | payer MEDICARE, MEDICAID, SELFPAY ==
[2024-05-27 16:08] LABS: MANUAL DIFF FLAG NO
[2024-05-27 16:12] LABS: Basophils Absolute Auto 0.1 X10*3/uL (0.0-0.2); Basophils Percent Auto 0.7 % (0-2); Eosinophils Absolute Auto 0.3 X10*3/uL (0.0-0.4); Eosinophils Percent Auto 1.4 % (0-4); Hemoglobin 16.2 g/dl (12.0-16.0); Imm Gran Abs Auto 0.06 X10*3/uL (0.00-0.03); Imm Gran Pct Auto 0.3 % (0.0-0.4); Lymphocytes Absolute Auto 2.2 X10*3/uL (1.2-4.9); Lymphocytes Percent Auto 12.1 % (20-40); Mean Corpuscular HGB Conc 33.8 g/dl (31.0-35.0); Mean Corpuscular Hemoglobin 30.4 pg (27.0-33.0); Mean Corpuscular Volume 90.1 fL (80.0-98.0); Mean Platelet Volume 9.1 fL (9.4-12.3); Monocytes Percent Auto 5.6 % (2-11); Neutrophils Absolute Auto 14.5 x10*3/uL (2.0-8.3); Neutrophils Percent Auto 79.9 % (45-73); Platelet Count 357 X10*3/uL (160-400); Red Blood Count 5.33 X10*6/uL (4.20-5.50); White Blood Count 18.1 X10*3/uL (4.8-10.8)
[2024-05-27 16:28] LABS: Estimated Average Glucose 120 mg/dL; Hemoglobin A1c % 5.8 % (<6.0); Total Hemoglobin (HGBA1C) 3939.7528 umol/L
[2024-05-27 16:40] LABS: Alanine Aminotransferase 9 U/L (0-31); Albumin Level 4.2 g/dL (3.5-5.0); Anion Gap 13 (12-20); Aspartate Amino Transferase 29 U/L (5-31); Bilirubin Total 0.5 mg/dL (0.0-1.0); Blood Urea Nitrogen 7 mg/dL (9-16); Calcium 9.8 mg/dL (8.4-10.2); Carbon Dioxide 24 mmol/L (22-29); Chloride 104 mmol/L (96-108); Cholesterol 187 mg/dL (<200); Estimated Glomerular Filt Rate > 60; Glucose Fasting 96 mg/dL (60-99); HDL Cholesterol 56 mg/dL (>40); LDL Cholesterol Calculated 114 mg/dL (<100); Sodium 136 mmol/L (135-145); Triglycerides 85 mg/dL (<150)
[2024-05-27 16:51] LABS: Alkaline Phosphatase 88 U/L (39-117)
[2024-05-27 17:05] LABS: TSH reflex Free T4 0.44 uIU/mL (0.32-4.0)
== END 2024-05-27 14:56 | disposition home or self-care (01) ==
LOC: HO.HMGCLDS 14:55
PROVIDERS: PCP Internal Medicine; Visit Provider Internal Medicine
DX: J06.9 Acute upper respiratory infection, unspecified (principal); R03.0 Elevated blood-pressure reading, without diagnosis of hypertension; R09.89 Other specified symptoms and signs involving the circulatory and respiratory systems; I10 Essential (primary) hypertension; E03.9 Hypothyroidism, unspecified; J44.9 Chronic obstructive pulmonary disease, unspecified; E66.9 Obesity, unspecified; R73.03 Prediabetes; F17.200 Nicotine dependence, unspecified, uncomplicated; Z91.09 Other allergy status, other than to drugs and biological substances
CPT/HCPCS: 0241U; 36415; 80053; 80061; 83036; 84443; 85025; 87880; 96127; 99212

== ENCOUNTER 2024-05-27 15:32 | Outpatient (AMB) | payer MEDICARE, MEDICAID, SELFPAY ==
[2024-05-27 15:34] VITALS: BP 162/88; PULSE 87; O2SAT 96; BMI 36.9
--- NOTE | 2024-05-27 15:34 | A.OFFPC_ITS ---
Vital Signs 05/27/24 15:34 Height 5 ft 1 in Weight 195 lb 7 oz BMI 36.9 BP 162/88 H Blood Pressure Location Lt brachial Position Sitting Pulse 87 Pulse Source Pulse Oximeter Pulse Oximetry (%) 96 Oxygen Delivery Method Room Air Intake Visit Reasons: Annual PE Allergies No Known Allergies [No Known Allergies*] Allergy (Verified 05/27/24 15:34) Medication List - Last Reconciled 05/27/24 by Sukhwinder Cade MD albuterol sulfate 90 mcg/actuation 2 puffs PO QID PRN amlodipine 10 mg PO DAILY cholecalciferol (vitamin D3) 25 mcg PO DAILY 90 days clotrimazole 1% (Antifungal (clotrimazole)) 1 appl topical BID 30 days fluticasone propion-salmeterol 250-50 mcg/dose (Advair Diskus) 1 inh inhalation BID 30 days levothyroxine 150 mcg PO DAILY 90 days miscellaneous medical supply (Blood Pressure Cuff) blood pressure device nicotine (Nicoderm CQ) 1 patch transdermal DAILY omeprazole 20 mg PO DAILY Tobacco use date assessed: 05/27/24 Dental Screening Dental Screen Date: 05/27/24 HPI Annual PE HPI Details Patient came in for sick visit Patient son is sick at home with cold and cough She is having mild cough sore throat There is no fever chills nausea vomiting diarrhea COVID flu and RSV test taken Strep test is negative Further management after the report Meanwhile patient is to push fluids and take Tylenol for aches and pains Her blood pressure is also elevated She does have a blood pressure monitor at home, patient will start monitoring blood pressure and start keeping a log Meanwhile she is to observe no salt diet She will return of this month for physical exam appointment. [facility] Medical History Daytime somnolence Obesity (BMI 35.0-39.9 without comorbidity) Asthma COPD (chronic obstructive pulmonary disease) Hypothyroidism Hypertension, essential Family History Other Mental health disorder Substance use disorder Social History Housing: Apartment Patient Tobacco Use Status: Current everyday Tobacco user Cigarette Packs Per Day: 1 e-Cigarette/Vaping Use: Never Used service: No Current occupational status: unemployed Cognitive needs: No Hearing needs: No Vision needs: Yes Questionnaire PHQ-9 Over the last 2 weeks, how often have you been bothered by any of the following problems? 1. Little interest or pleasure in doing things: several days 2. Feeling down, depressed, or hopeless: several days 3. Trouble falling or staying asleep, or sleeping too much: more than half the days 4. Feeling tired or having little energy: more than half the days 5. Poor appetite or overeating: several days 6. Feeling bad about yourself - or that you are a failure or have let yourself or your family down: several days 7. Trouble concentrating on things, such as reading the newspaper or watching television: several days 8. Moving or speaking so slowly that other people could have noticed. Or the opposite - being so fidgety or restless that you have been moving around a lot more than usual: several days 9. Thoughts that you would be better off or of hurting yourself in some way: not at all Total score: 10 Depression Screening Interpretation: Positive Depression Screening Follow-up: Existing condition and Follow-up Visit Requested Depression Screening Done: Yes [id number] - PHQ-9 Billing: Yes Source: Developed by Drs. Ricardo Mojica, Nisha Vora, Smooth David and colleagues, with an educational carmencita from [employer]. Thrive Questionnaire Date Thrive assessed: 01/29/23 I am a: Patient What is your living situation today?: I have a steady place to live Within the past 12 months, did the food you bought not last and you didn't have the money to get more?: Never true Within the past 12 months, did you worry whether your food would run out before you got money to buy more?: Never true Do you have trouble paying for medicines?: No Do you have trouble getting transportation to medical appointments?: No Do you have trouble paying your heating and electricity bill?: No Do you have trouble taking care of your child, family member or friend?: No Do you have trouble with day-to-day activities such as bathing, preparing meals, shopping, managing finances, etc.?: Yes Are you currently unemployed and looking for a job?: No Are you interested in more education?: No Please select the resources that you would like help with: None Currently or been in a relationship where the following occur: No concerns reported THRIVE Score: 0 AUDIT C Alcohol Use Questionnaire (AUDIT-C) 1. How often do you have a drink containing alcohol?: Never Total Score: 0 ESSIE-7 AMB Questionnaire ESSIE-7 Date ESSIE - 7 assessed: 01/29/23 Feeling nervous, anxious, or on edge: 2 = More than half the days Not being able to stop or control worryin = More than half the days Worrying too much about different things: 2 = More than half the days Trouble relaxin = More than half the days Being so restless that it is hard to sit still: 1 = Several days Becoming easily annoyed or irritable: 0 = Not at all Feeling afraid as if something awful might happen: 1 = Several days Total ESSIE-7 score (0-4 normal; 5-9 mild; 10-14 moderate; 15-21 severe): 10 Source: Developed by Drs. Ricardo Mojica, Nisha Vora, Smooth David and colleagues, with an educational carmencita from [employer]. Review of Systems Const Reports as per HPI Eyes Denies change in vision ENT Denies ear discharge and Denies mouth pain Card Denies chest pain at rest and Denies chest pain with activity Resp Denies hemoptysis and Denies stridor GI Denies diarrhea and Denies vomiting Musc Denies as per HPI Skin/Breast Denies skin ulcer and Denies sores Physical exam (Primary Care) Vital Signs: Last Vital Signs Pulse 87 05/27/24 15:34 BP 162/88 H 05/27/24 15:34 Pulse Ox 96 05/27/24 15:34 Oxygen Delivery Method Room Air 05/27/24 15:34 BMI result Body Mass Index 36.9 Tobacco/Smoking Status: Tobacco use Status Tobacco use date assessed 05/27/24 05/27/24 15:36 Patient Tobacco Use Status Current everyday Tobacco 05/27/24 15:36 e-Cigarette/Vaping Use Never Used 05/27/24 15:36 PHQ-9: PHQ-9 Score PHQ-9: Total score 10 05/27/24 15:36 Depression Screening Interpretation: Positive Depression Screening Follow-up: Existing condition and Follow-up Visit Requested Thrive Assessment: Date of Thrive Assessment Date Thrive assessed 01/29/23 05/27/24 15:36 Currently or been in a relationship where the following occur: No concerns reported Const General: cooperative and comfortable Orientation/consciousness: patient oriented x3 HENMT Other: Mild throat erythema, uvula midline Head: Yes normocephalic and Yes atraumatic Ears: external ears normal General nose exam: Normal external nose present Mouth: Normal oral and palatal mucosa present Neck Neck: Yes trachea midline and Yes supple Resp Auscultation: clear to auscultation bilaterally Cardio Heart sounds: S1 normal heart sound present and S2 normal heart sound present Skin General skin exam: elasticity normal and turgor normal Neuro General: patient oriented x3 and moves all extremities Gait exam (Neuro): Normal gait present Psych Mental Status: mental status grossly normal Results AMB Rapid Strep AMB Rapid Strep Negative Last Edit by Brian Peña CMA on 05/27/24 15 :57 Coding Level of Care Code Est Pt Level 3 (12417) Diagnoses Upper respiratory tract infection, unspecified type J06.9 URI type: unspecified URI Elevated blood pressure reading R03.0 Additional Codes PHQ-9 - 51245 - PHQ-9 Billing: Yes ([id number]) Assessment & Plan Assessment & Plan (1) Upper respiratory tract infection: Code(s): J06.9 - Acute upper respiratory infection, unspecified Category: Medical Qualifiers: URI type: unspecified URI Qualified Code(s): J06.9 - Acute upper respiratory infection, unspecified (2) Elevated blood pressure reading: Code(s): R03.0 - Elevated blood-pressure reading, without diagnosis of hypertension Category: Medical Plan Patient came in for sick visit Patient son is sick at home with cold and cough She is having mild cough sore throat There is no fever chills nausea vomiting diarrhea COVID flu and RSV test taken Strep test is negative Further management after the report Meanwhile patient is to push fluids and take Tylenol for aches and pains Her blood pressure is also elevated She does have a blood pressure monitor at home, patient will start monitoring blood pressure and start keeping a log Meanwhile she is to observe no salt diet She will return of this month for physical exam appointment. Orders: Orders SARS-CoV2/FLU/RSV Today R09.89 - Other specified symptoms and signs involving the circulatory and respiratory systems AMB Rapid Strep Screen Today Z13.9 - Encounter for screening, unspecified
== END 2024-05-27 16:02 | disposition home or self-care (01) ==
PROVIDERS: PCP Internal Medicine; Visit Provider Internal Medicine
DX: J06.9 Acute upper respiratory infection, unspecified (principal); R03.0 Elevated blood-pressure reading, without diagnosis of hypertension; Z13.9 Encounter for screening, unspecified

== ENCOUNTER 2024-05-27 15:57 | Outpatient (REF) | payer MEDICARE, MEDICAID, SELFPAY ==
[2024-05-28 12:16] LABS: Influenza A PCR NEGATIVE (Negative); Influenza B PCR NEGATIVE (Negative); Resp Syncy Virus RNA Qual PCR NEGATIVE (Negative); SARS COV2 PCR INHOUSE NEGATIVE (Negative)
== END 2024-05-27 15:58 | disposition home or self-care (01) ==
LOC: HO.LAB 15:57
PROVIDERS: Visit Provider Internal Medicine
DX: Z13.89 Encounter for screening for other disorder (principal)
CPT/HCPCS: 0241U

== ENCOUNTER 2025-01-25 14:49 | Outpatient (AMB) | payer MEDICARE, MEDICAID, SELFPAY ==
[2025-01-25 15:24] VITALS: BP 138/82; PULSE 81; TEMP 36.7; O2SAT 98; BMI 37.0
--- NOTE | 2025-01-25 15:24 | MHC.OFFWIV ---
Intake Vital Signs 01/25/25 15:24 Height 5 ft 1 in Weight 196 lb BMI 37.0 BP 138/82 Blood Pressure Location Lt brachial Position Sitting Pulse 81 Pulse Source Pulse Oximeter Temp 98.1 F Temp Source Oral Pulse Oximetry (%) 98 Oxygen Delivery Method Room Air Intake Visit Reasons: EP-?b/l ears infection Intake Note: presents with bilateral itchy inner ears with left ear pressure and discomfort Patient Tobacco Use Status: Current everyday Tobacco user Allergies No Known Allergies (No Known Allergies*) Allergy (Verified 01/25/25 15:24) Do you need a note to return to daycare/school/sports/work: No HPI HPI Comments History of Present Illness Details History of Present Illness - The patient is a 54-year-old female presenting with itchy ears. - Persistent itchiness in the ears has been present for several months, with worsening noted yesterday. - Physical Exam General: Cooperative, healthy appearing, comfortable, no acute distress and well developed Orientation: Patient oriented x3 Limitations: No limitations Head: Normal to inspection Ears: Hearing grossly normal bilaterally, no ear wax present, TM's visualized and not bulging. No erythema noted. Effusion noted on the left. Nose: Normal external nose present Face and sinus: Normal facial exam Eyes: Appearance normal, both eyes and all related structures Neck: Normal visual inspection and Yes full ROM Respiratory: Normal respiratory effort and able to speak in complete sentences. Clear to auscultation bilaterally Cardiovascular: Regular rate and rhythm. Normal S1 and S2 Patient was informed and verbally consented to the use of an ambient scribe for clinic note documentation during this visit. [facility] [place] Medical History Daytime somnolence Obesity (BMI 35.0-39.9 without comorbidity) Asthma COPD (chronic obstructive pulmonary disease) Hypothyroidism Hypertension, essential Family History Other Mental health disorder Substance use disorder Social History Housing: Apartment Patient Tobacco Use Status: Current everyday Tobacco user Cigarette Packs Per Day: 1 e-Cigarette/Vaping Use: Never Used service: No Current occupational status: unemployed Cognitive needs: No Hearing needs: No Vision needs: Yes Review of Systems Const All systems reviewed & are unremarkable except as noted in HPI and below Physical Exam Vital Signs: Last Vital Signs Temp 98.1 F 01/25/25 15:24 Pulse 81 01/25/25 15:24 BP 138/82 01/25/25 15:24 Pulse Ox 98 01/25/25 15:24 Oxygen Delivery Method Room Air 01/25/25 15:24 BMI result Body Mass Index 37.0 Assessment & Plan Assessment & Plan (1) Ear pain: Code(s): H92.09 - Otalgia, unspecified ear Qualifiers: Laterality: bilateral Qualified Code(s): H92.03 - Otalgia, bilateral Plan Most likely allergies Plan - Antihistamine ear drops prescribed for itchiness. - Referral to an reference and instruction librarian if symptoms do not improve. - Medication sent to pharmacy - follow up with PCP. Medications: New hydrocortisone-acetic acid 1-2 % 4 drps otic (ear) right TID 10 mL 0RF 5 days cetirizine-pseudoephedrine 5-120 mg ER 1 tab PO BID 14 tabs 0RF 7 days Coding Level of Care Code Est Pt Level 3 (88794) Diagnoses Otalgia of both ears H92.03 Laterality: bilateral
== END 2025-01-25 16:33 | disposition home or self-care (01) ==
PROVIDERS: PCP Internal Medicine; Visit Provider Physician Assistant Medical
DX: H92.03 Otalgia, bilateral (principal)

== ENCOUNTER → 2025-01-25 14:49 | Outpatient (BNVA) | payer MEDICARE, MEDICAID, SELFPAY | PROVIDERS: PCP Internal Medicine; Visit Provider Physician Assistant Medical | DX: H92.03 Otalgia, bilateral (principal) | CPT/HCPCS: 99212 ==

== ENCOUNTER 2025-03-26 13:21 | Outpatient (AMB) | payer MEDICARE, MEDICAID, SELFPAY ==
--- NOTE | 2025-03-26 13:28 | A.OFFPC_ITS ---
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 Required: No Accompanied by: Self / Same As Patient Allergies No Known Allergies (No Known Allergies*) Allergy (Verified 03/26/25 13:33) Medication List - Last Reconciled 03/26/25 by Sukhwinder Cade MD albuterol sulfate 90 mcg/actuation 2 puffs PO QID PRN amlodipine 10 mg PO DAILY fluticasone propion-salmeterol 250-50 mcg/dose (Advair Diskus) 1 inh inhalation BID 30 days humidifiers (Cool Mist Humidifier) Use As directed ipratropium-albuterol 0.5 mg-3 mg(2.5 mg base)/3 mL 3 mL inhalation Q6H PRN levothyroxine 150 mcg PO DAILY 90 days miscellaneous medical supply (Blood Pressure Cuff) blood pressure device nebulizer and compressor Use every 6 hrs prn as directed Tobacco use date assessed: 03/26/25 Dental Screening Dental Screen Date: 05/27/24 HPI ANNUAL PE HPI Details History of Present Illness The patient is a 55-year-old female presenting for a wellness visit. Chest pain: Patient is complaining of periodic brief chest pain left side of chest We did the EKG today which shows normal sinus rhythm possible left atrial enlargement no acute findings Essential Hypertension: - The patient's blood pressure is contro lled at 130/82 mmHg. - Currently taking Amlodipine 10 mg for management. Chronic Obstructive Pulmonary Disease (COPD): - The patient has a history of long-term smoking since age 19 at a rate of one pack per day. - The patient exhibits symptoms characte ristic of COPD/Asthma overlap. - Utilizes ipratropium-albuterol via upd raft machine and an albuterol inhaler as needed. Asthma: - The patient reports occasional difficu lty in breathing. - Uses an albuterol inhaler, primarily, and an updraft machine on an as-needed basis. - supposed to be on Advair daily but she is not taking, instructed to start using it, refill sent Allergic rhinitis: Requesting a Flonase nasal spray Patient also suffers from chronic tinea corporis and is requesting treatment Hypothyroidism: - Managed with Levothyroxine 150 mcg. D ue for labs Prediabetes: - The patient is aware of prediabetes di agnosis trying to controlled diet Nicotine Dependence: - The patient smokes approximately 20 ci garettes daily using homemade rolled tobacco. - did not take Nicoderm patches that I s ent due to afraid of having side effects but is requesting Nicorette gum Script sent Family History of Breast Cancer: - Maternal history of breast cancer init iated in her 50s. - Mother's condition progressed to the b ones, causing significant impact. Social History:. - Experiences transportation challenges for medical appointments. - Recently experiencing stress due to ch anges in family dynamics, specifically with adult son moving out. - Another adult son resides with her but lacks a automation driver's license to assist with transportation. - Reports walking more but experiencing breathlessness. Family History: - Mother at age 60 from [facility] cancer that started in her 50s and eventually metastasized. - Brother had liver cancer and passed aw ay recently; paternal history of liver cancer. Health Maintenance - Due for laboratory tests. - Mammogram recommended; last completed in December 2022. - Needs a gynecological exam; last exam approximately 6 years ago. - Discussed Cologuard as an alternative to colonoscopy. Patient declined to do colonoscopy - Encouraged smoking cessation, consider ing Nicorette gum. - Metabolic disorders monitoring due to prediabetes and hypothyroidism. Diagnostic results - Sinus rhythm with no acute findings on EKG. Patient Instructions - Continue using Amlodipine for blood pr essure management. - Use Advair daily for COPD/Asthma manag ement to prevent flare-ups. - Utilize Albuterol inhaler as needed fo r acute breathing difficulties. - Schedule and complete laboratory tests . - Schedule mammogram appointment. - Consider Cologuard test for colorectal screening. - Increase fiber intake and maintain hyd ration for bowel regularity. - Attempt smoking cessation with Nicoret te gum. Med you 1 gum 20 times a day as - Arrange transport for upcoming health appointments. Suffers due to smoking - ketoconazole cream sent for tinea leanne gavin - Flonase sent for chronic allergic rhin itis Follow-up 5 weeks on Nicorette gum, labs, mammogram Review of Systems - General: No fever no chills - Neurological: No headaches no dizzin ess - Ear nose throat: No sore throat no hearing difficulty no ear pain - Cardiovascular: No syncope, no chest pain, no palpitations - Gastrointestinal: No nausea vomiting or diarrhea - Endocrine: No polyuria polydipsia no heat intolerance - Genitourinary: No dysuria - Skin: No new complaints Physical Exam General: Cooperative, healthy appearing, comfortable, no acute distress Orientation: Patient oriented x3 Head: Normal to inspection Ears: Within normal limit visually Nose: Normal external nose present Face and sinus: Normal facial exam Eyes: Appearance normal, extraocular movement intact pupils reactive Neck: Normal visual inspection and supple Respiratory: Normal respiratory effort and able to speak in complete sentences. Clear to auscultation, no stridor Cardiovascular: S1 and S2 RRR, sinus rhythm no acute findings Breast exam benign GI: Normal to inspection. Soft to palpation and nontender Skin: Turgor normal, no acute findings Neuro: Patient oriented x3, motor sensory intact, balance intact, tandem pass Extremities: Normal to inspection . [facility] Medical History Daytime somnolence Obesity (BMI 35.0-39.9 without comorbidity) Asthma COPD (chronic obstructive pulmonary disease) Hypothyroidism Hypertension, essential Family History Other Mental health disorder Substance use disorder Social History Housing: Apartment Patient Tobacco Use Status: Current everyday Tobacco user Cigarette Packs Per Day: 1 e-Cigarette/Vaping Use: Never Used service: No Current occupational status: unemployed Cognitive needs: No Hearing needs: No Vision needs: Yes Questionnaire PHQ-9 Over the last 2 weeks, how often have you been bothered by any of the following problems? 1. Little interest or pleasure in doing things: several days 2. Feeling down, depressed, or hopeless: several days 3. Trouble falling or staying asleep, or sleeping too much: more than half the days 4. Feeling tired or having little energy: more than half the days 5. Poor appetite or overeating: several days 6. Feeling bad about yourself - or that you are a failure or have let yourself or your family down: several days 7. Trouble concentrating on things, such as reading the newspaper or watching television: several days 8. Moving or speaking so slowly that other people could have noticed. Or the opposite - being so fidgety or restless that you have been moving around a lot more than usual: several days 9. Thoughts that you would be better off or of hurting yourself in some way: not at all Total score: 10 Depression Screening Interpretation: Positive Depression Screening Follow-up: Existing condition and Follow-up Visit Requested Depression Screening Done: Yes 03075 - PHQ-9 Billing: Yes Source: Developed by Drs. Ricardo Mojica, Nisha Vora, Smooth David and colleagues, with an educational carmencita from [employer] Thrive Questionnaire Date Thrive assessed: 05/27/24 I am a: Patient What is your living situation today?: I have a steady place to live Within the past 12 months, did the food you bought not last and you didn't have the money to get more?: Never true Within the past 12 months, did you worry whether your food would run out before you got money to buy more?: Never true Do you have trouble paying for medicines?: No Do you have trouble getting transportation to medical appointments?: No Do you have trouble paying your heating and electricity bill?: No Do you have trouble taking care of your child, family member or friend?: No Do you have trouble with day-to-day activities such as bathing, preparing meals, shopping, managing finances, etc.?: Yes Are you currently unemployed and looking for a job?: No Are you interested in more education?: No Please select the resources that you would like help with: None Currently or been in a relationship where the following occur: No concerns reported THRIVE Score: 0 ESSIE-7 AMB Questionnaire ESSIE-7 Date ESSIE - 7 assessed: 01/29/23 Feeling nervous, anxious, or on edge: 2 = More than half the days Not being able to stop or control worryin = More than half the days Worrying too much about different things: 2 = More than half the days Trouble relaxin = More than half the days Being so restless that it is hard to sit still: 1 = Several days Becoming easily annoyed or irritable: 0 = Not at all Feeling afraid as if something awful might happen: 1 = Several days Total ESSIE-7 score (0-4 normal; 5-9 mild; 10-14 moderate; 15-21 severe): 10 Source: Developed by Drs. Ricardo Mojica, Nisha Vora, Smooth David and colleagues, with an educational carmencita from [employer] ESSIE-7 Assessment Billing ESSIE-7 Assessment Tool: ESSIE-7 Assessment 90315 Physical exam (Primary Care) Vital Signs: Last Vital Signs Pulse 86 03/26/25 13:30 Resp 16 03/26/25 13:30 BP 130/82 03/26/25 13:30 Pulse Ox 99 03/26/25 13:30 Oxygen Delivery Method Room Air 03/26/25 13:30 Tobacco/Smoking Status: Tobacco use Status Tobacco use date assessed 03/26/25 03/26/25 13:34 Patient Tobacco Use Status Current everyday Tobacco 03/26/25 13:34 e-Cigarette/Vaping Use Never Used 03/26/25 13:34 Are you ready to quit: Yes Tobacco cessation counseling provided: Yes Relapse Prevention: discussed the importance of a supportive environment and discussed dietary, exercise and/or lifestyle changes Number of minutes spent counselin CPT code: 80247 - 4-10 Minutes Depression Screening Interpretation: Positive Depression Screening Follow-up: Existing condition and Follow-up Visit Requested Thrive Assessment: Date of Thrive Assessment Date Thrive assessed 05/27/24 03/26/25 13:34 Currently or been in a relationship where the following occur: No concerns reported Office Procedures EKG 90342-Mdnyieqfaqxtxrwss, Complete Coding Level of Care Code Est Pt Level 4 (00477) Est Pt Prev Care 40-64y(44424) Diagnoses Encounter for general adult medical examination with abnormal findings Z00.01 Chain smoker F17.200 Asthma-COPD overlap syndrome J44.89 Hypertension, essential I10 Environmental allergies Z91.09 Pre-diabetes R73.03 Hypothyroidism, unspecified type E03.9 Hypothyroidism type: unspecified Vitamin D deficiency E55.9 Colonoscopy refused Z53.20 Chest pain R07.9 Abnormal EKG R94.31 CPT Codes EKG - CPT: 36467-Mdoigkjvepgyzxzim, Complete ([id number]) Additional Codes Vital Signs *Quality* - CPT code: 39645 - 4-10 Minutes ([id number]) PHQ-9 - 88407 - PHQ-9 Billing: Yes ([id number]) ESSIE-7 Assessment Billing - ESSIE-7 Assessment Tool: ESSIE-7 Assessment 16150 ([id number]) Assessment & Plan Assessment & Plan (1) Encounter for general adult medical examination with abnormal findings: Code(s): Z00.01 - Encounter for general adult medical examination with abnormal findings Category: Medical (2) Chain smoker: Code(s): F17.200 - Nicotine dependence, unspecified, uncomplicated Category: Social Hx (3) Asthma-COPD overlap syndrome: Code(s): J44.89 - Other specified chronic obstructive pulmonary disease Category: Medical (4) Hypertension, essential: Code(s): I10 - Essential (primary) hypertension Category: Medical (5) Environmental allergies: Code(s): Z91.09 - Other allergy status, other than to drugs and biological substances Category: Medical (6) Pre-diabetes: Code(s): R73.03 - Prediabetes Category: Medical (7) Hypothyroidism: Code(s): E03.9 - Hypothyroidism, unspecified Category: Medical Qualifiers: Hypothyroidism type: unspecified Qualified Code(s): E03.9 - Hypothyroidism, unspecified (8) Vitamin D deficiency: Code(s): E55.9 - Vitamin D deficiency, unspecified Category: Medical (9) Colonoscopy refused: Code(s): Z53.20 - Procedure and treatment not carried out because of patient's decision for unspecified reasons Category: Medical (10) Chest pain: Code(s): R07.9 - Chest pain, unspecified Category: Medical (11) Abnormal EKG: Code(s): R94.31 - Abnormal electrocardiogram [ECG] [EKG] Category: Medical Plan History of Present Illness The patient is a 55-year-old female presenting for a wellness visit. Chest pain: Patient is complaining of periodic brief chest pain left side of chest We did the EKG today which shows normal sinus rhythm possible left atrial enlargement no acute findings Essential Hypertension: - The patient's blood pressure is controlled at 130/82 mmHg. - Currently taking Amlodipine 10 mg for management. Chronic Obstructive Pulmonary Disease (COPD): - The patient has a history of long-term smoking since age 19 at a rate of one pack per day. - The patient exhibits symptoms characteristic of COPD/Asthma overlap. - Utilizes ipratropium-albuterol via updraft machine and an albuterol inhaler as needed. Asthma: - The patient reports occasional difficulty in breathing. - Uses an albuterol inhaler, primarily, and an updraft machine on an as-needed basis. - supposed to be on Advair daily but she is not taking, instructed to start using it, refill sent Allergic rhinitis: Requesting a Flonase nasal spray Patient also suffers from chronic tinea corporis and is requesting treatment Hypothyroidism: - Managed with Levothyroxine 150 mcg. Due for labs Prediabetes: - The patient is aware of prediabetes diagnosis trying to controlled diet Nicotine Dependence: - The patient smokes approximately 20 cigarettes daily using homemade rolled tobacco. - did not take Nicoderm patches that I sent due to afraid of having side effects but is requesting Nicorette gum Script sent Family History of Breast Cancer: - Maternal history of breast cancer initiated in her 50s. - Mother's condition progressed to the bones, causing significant impact. Social History:. - Experiences transportation challenges for medical appointments. - Recently experiencing stress due to changes in family dynamics, specifically with adult son moving out. - Another adult son resides with her but lacks a automation driver's license to assist with transportation. - Reports walking more but experiencing breathlessness. Family History: - Mother at age 60 from breast cancer that started in her 50s and eventually metastasized. - Brother had liver cancer and recently; paternal history of liver cancer. Health Maintenance - Due for laboratory tests. - Mammogram recommended; last completed in December 2022. - Needs a gynecological exam; last exam approximately 6 years ago. - Discussed Cologuard as an alternative to colonoscopy. Patient declined to do colonoscopy - Encouraged smoking cessation, considering Nicorette gum. - Metabolic disorders monitoring due to prediabetes and hypothyroidism. Diagnostic results - Sinus rhythm with no acute findings on EKG. Possible left atrial enlargement Echocardiogram ordered as patient has a history of hypertension and chronic smoking Patient Instructions - Continue using Amlodipine for blood pressure management. - Use Advair daily for COPD/Asthma management to prevent flare-ups. - Utilize Albuterol inhaler as needed for acute breathing difficulties. - Schedule and complete laboratory tests. - Schedule mammogram appointment. - Consider Cologuard test for colorectal screening. - Increase fiber intake and maintain hydration for bowel regularity. - Attempt smoking cessation with Nicorette gum. Med you 1 gum 20 times a day as - Arrange transport for upcoming health appointments. Suffers due to smoking - ketoconazole cream sent for tinea corporis - Flonase sent for chronic allergic rhinitis Follow-up 5 weeks on Nicorette gum, labs, mammogram . Orders: Orders Complete Blood Count Auto Diff Today E03.9 - Hypothyroidism, unspecified, E55.9 - Vitamin D deficiency, unspecified, I10 - Essential (primary) hypertension, J44.89 - Other specified chronic obstructive pulmonary disease, R73.03 - Pred iabetes, Z00.01 - Encounter for general adult medical examination with abnormal findings, Z91.09 - Other allergy status, other than to drugs and biological substances Comprehensive Met. Panel Today E03.9 - Hypothyroidism, unspecified, E55.9 - Vitamin D deficiency, unspecified, I10 - Essential (primary) hypertension, J44.89 - Other specified chronic obstructive pulmonary disease, R73.03 - Prediabetes, Z00.01 - Encounter for general adult medical examination with abnormal findings, Z91.09 - Other allergy status, other than to drugs and biological substances LDL Cholesterol Direct Today E03.9 - Hypothyroidism, unspecified, E55.9 - Vitamin D deficiency, unspecified, I10 - Essential (primary) hypertension, J44.89 - Other specified chronic obstructive pulmonary disease, R73.03 - Prediabetes, Z00.01 - Encounter for general adult medical examination with abnormal findings, Z91.09 - Other allergy status, other than to drugs and biological substances Vitamin D 25-OH (D2 and D3) Today E03.9 - Hypothyroidism, unspecified, E55.9 - Vitamin D deficiency, unspecified, I10 - Essential (primary) hypertension, J44.89 - Other specified chronic obstructive pulmonary disease, R73.03 - Prediabetes, Z00.01 - Encounter for general adult medical examination with abnormal findings, Z91.09 - Other allergy status, other than to drugs and biological substances Hemoglobin A1c Today R73.03 - Prediabetes TSH reflex Free T4 Today E03.9 - Hypothyroidism, unspecified, E55.9 - Vitamin D deficiency, unspecified, I10 - Essential (primary) hypertension, J44.89 - Other specified chronic obstructive pulmonary disease, R73.03 - Prediabetes, Z00.01 - Encounter for general adult medical examination with abnormal findings, Z91.09 - Other allergy status, other than to drugs and biological substances MM tomosynthesis screening BI Today Z12.31 - Encounter for screening mammogram for malignant neoplasm of breast CA echo transthoracic complete Today I10 - Essential (primary) hypertension, R07.9 - Chest pain, unspecified, R94.31 - Abnormal electrocardiogram [ECG] [EKG] Referrals [facility] Referral Z01.419 - Encounter for gynecological examination (general) (routine) without abnormal findings Cologuard Test Z12.11 - Encounter for screening for malignant neoplasm of colon, Z12.12 - Encounter for screening for malignant neoplasm of rectum Medications: New nicotine (polacrilex) (Nicorette) 4 mg buccal Q2H 100 ea 2RF 15 days ketoconazole 2% 1 appl topical DAILY 60 grams 0RF fluticasone propionate 50 mcg/actuation (Flonase Allergy Relief) administer into each nostril 1 spray intranasal DAILY 16 grams 2RF Refilled fluticasone propion-salmeterol 250-50 mcg/dose (Advair Diskus) 1 inh inhalation BID 60 ea 5RF 30 days
[2025-03-26 13:30] VITALS: BP 130/82; PULSE 86; RESP 16; O2SAT 99
== END 2025-03-26 14:10 | disposition home or self-care (01) ==
LOC: HO.HMCC 13:22
PROVIDERS: PCP Internal Medicine; Visit Provider Internal Medicine
DX: Z00.01 Encounter for general adult medical examination with abnormal findings (principal); J44.89 Other specified chronic obstructive pulmonary disease; I10 Essential (primary) hypertension; R73.03 Prediabetes; R07.9 Chest pain, unspecified; R94.31 Abnormal electrocardiogram [ECG] [EKG]; F17.210 Nicotine dependence, cigarettes, uncomplicated; Z91.09 Other allergy status, other than to drugs and biological substances; E03.9 Hypothyroidism, unspecified; E55.9 Vitamin D deficiency, unspecified; Z53.20 Procedure and treatment not carried out because of patient's decision for unspecified reasons

== ENCOUNTER 2025-03-26 13:21 | Outpatient (REF) | payer MEDICARE, MEDICAID, SELFPAY ==
[2025-03-26 16:19] LABS: MANUAL DIFF FLAG NO
[2025-03-26 16:28] LABS: Hematocrit 45.7 % (37.0-47.0); Hemoglobin 15.7 g/dl (12.0-16.0); Imm Gran Abs Auto 0.05 X10*3/uL (0.00-0.03); Imm Gran Pct Auto 0.5 % (0.0-0.4); Lymphocytes Absolute Auto 2.5 X10*3/uL (1.2-4.9); Mean Corpuscular HGB Conc 34.4 g/dl (31.0-35.0); Mean Corpuscular Hemoglobin 30.4 pg (27.0-33.0); Mean Corpuscular Volume 88.6 fL (80.0-98.0); NRBC Abs Auto 0.000 X10*3/uL (0.0-0.012); NRBC Pct Auto 0.0 /100WBC (0.0-0.2); Platelet Count 372 X10*3/uL (160-400); Red Blood Count 5.16 X10*6/uL (4.20-5.50); White Blood Count 11.0 X10*3/uL (4.8-10.8)
[2025-03-26 16:41] LABS: Alanine Aminotransferase 17 U/L (0-31); Albumin Level 4.6 g/dL (3.5-5.0); Alkaline Phosphatase 94 U/L (39-117); Anion Gap 12 (12-20); Aspartate Amino Transferase 22 U/L (5-31); Blood Urea Nitrogen 11 mg/dL (9-16); Calcium 9.5 mg/dL (8.4-10.2); Carbon Dioxide 25 mmol/L (22-29); Chloride 103 mmol/L (96-108); Estimated Glomerular Filt Rate > 60; Potassium 4.3 mmol/L (3.3-5.1); Sodium 136 mmol/L (135-145); Total Protein 8.0 g/dL (6.5-8.0)
[2025-04-02 16:38] LABS: Vitamin D 25-OH, D2 <4 ng/mL; Vitamin D 25-OH, D3 10 ng/mL; Vitamin D 25-OH, Total 10 ng/mL (30-100)
== END 2025-03-26 13:22 | disposition home or self-care (01) ==
LOC: HO.HMGCLDS 13:21
PROVIDERS: PCP Internal Medicine; Visit Provider Internal Medicine
DX: Z00.01 Encounter for general adult medical examination with abnormal findings (principal); I10 Essential (primary) hypertension; J30.9 Allergic rhinitis, unspecified; E03.9 Hypothyroidism, unspecified; R73.03 Prediabetes; F17.210 Nicotine dependence, cigarettes, uncomplicated; J44.89 Other specified chronic obstructive pulmonary disease; E03.8 Other specified hypothyroidism; E55.9 Vitamin D deficiency, unspecified; R07.9 Chest pain, unspecified; R94.31 Abnormal electrocardiogram [ECG] [EKG]; Z53.20 Procedure and treatment not carried out because of patient's decision for unspecified reasons; Z91.09 Other allergy status, other than to drugs and biological substances
CPT/HCPCS: 36415; 80053; 82306; 83036; 83721; 84443; 85025; 93005; 96127; 99212; 99396